=== PATIENT | female | born 1955 | race Caucasian/White ===

== ENCOUNTER 2017-11-16 12:15 | Outpatient (CLI) | payer MEDICARE, BC ==
[2017-11-16 13:13] LABS: BASOPHILS % (AUTO) 0.7 % (0-1); EOSINOPHILS # (AUTO) 0.1 X10'3 (0-0.9); EOSINOPHILS % (AUTO) 2.1 % (0-6); HEMATOCRIT 38.4 % (35.0-45.0); HEMOGLOBIN 12.5 g/dl (12.0-16.0); LYMPHOCYTES # (AUTO) 1.3 X10'3 (1.1-4.8); LYMPHOCYTES % (AUTO) 26.9 % (21-51); MEAN CORPUSCULAR HEMOGLOBIN 28.5 PG (27.0-31.0); MEAN CORPUSCULAR HGB CONC 32.6 % (33.0-36.5); MEAN CORPUSCULAR VOLUME 87.4 FL (78-98); MEAN PLATELET VOLUME 8.4 FL (7.4-10.4); MONOCYTES # (AUTO) 0.4 X10'3 (0-0.9); MONOCYTES % (AUTO) 8.2 % (2-12); NEUTROPHILS # (AUTO) 3.2 X10'3 (1.8-7.7); NEUTROPHILS % (AUTO) 62.1 % (42-75); PLATELET COUNT 240 X10'3 (140-440); RED CELL DISTRIBUTION WIDTH 16.2 % (11.5-14.5)
[2017-11-16 13:23] LABS: HEMOGLOBIN A1C 5.6 % (4.5-6.2)
[2017-11-16 13:53] LABS: ALANINE AMINOTRANSFERASE 31 U/L (12-78); ALBUMIN 3.7 G/DL (3.4-5.0); ALBUMIN/GLOBULIN RATIO 0.9 (1.1-1.5); ALKALINE PHOSPHATASE 94 IU/L (46-116); ANION GAP 10 (8-16); ASPARTATE AMINO TRANSFERASE 19 U/L (10-37); BILIRUBIN,TOTAL 0.3 MG/DL (0.1-1.0); BLOOD UREA NITROGEN 25 MG/DL (7-18); BUN/CREATININE RATIO 33.8 (6.6-38.0); CALCIUM 8.7 MG/DL (8.5-10.1); CHLORIDE 102 MMOL/L (99-107); CHOL/HDL RATIO 2.5 (0.00-4.99); CHOLESTEROL 193 MG/DL (0-200); CREATININE 0.74 MG/DL (0.40-0.90); FERRITIN 16 NG/ML (8-252); GLUCOSE 102 MG/DL (70-104); HDL CHOLESTEROL 77 MG/DL (35-60); LDL CHOLESTEROL 102 MG/DL (50-100); POTASSIUM 4.1 MMOL/L (3.5-5.1); SODIUM 139 MMOL/L (135-145); TRIGLYCERIDES 61 MG/DL (20-135); eGFR 80 ML/MIN
[2017-11-16 13:54] LABS: IRON 57 UG/DL (49-151)
[2017-11-18 08:11] LABS: FSH, SERUM 41.3 mIU/mL (.); GAMMA GLUTAMLY TRANSPEPTIDASE 30 IU/L (0-60); PROGESTERONE <0.1 ng/mL (.); THIIODOTHRONINE, FREE, SERUM 2.5 pg/mL (2.0-4.4)
[2017-11-19 08:50] LABS: VITAMIN D, 25-HYDROXY 35.4 ng/mL (30.0-100.0)
[2017-11-20 09:53] LABS: INSULIN 18.4 uIU/mL (2.6-24.9)
[2017-11-20 13:16] LABS: ESTRONE, SERUM 69 pg/mL (.); TESTOSTERONE, FREE, DIRECT 1.8 pg/mL (0.0-4.2)
== END 2017-11-16 23:59 | disposition home or self-care (01) ==
LOC: LAB 12:15
PROVIDERS: ATTEND Internal Medicine
DX: E78.5 Hyperlipidemia, unspecified (principal); E07.9 Disorder of thyroid, unspecified; E34.9 Endocrine disorder, unspecified; R53.83 Other fatigue; N95.1 Menopausal and female climacteric states; E16.1 Other hypoglycemia; M06.4 Inflammatory polyarthropathy; Z87.891 Personal history of nicotine dependence
CPT/HCPCS: 36415; 80053; 80061; 82306; 82670; 82679; 82728; 82977; 83001; 83036; 83525; 83540; 84144; 84402; 84403; 84439; 84481; 85025

== ENCOUNTER → 2017-11-16 | Outpatient (CLI) | payer MEDICARE, BC ==
[2017-11-16 13:12] LABS: BASOPHILS % (AUTO) 0.7 % (0-1); EOSINOPHILS # (AUTO) 0.1 X10'3 (0-0.9); EOSINOPHILS % (AUTO) 1.8 % (0-6); HEMATOCRIT 38.2 % (35.0-45.0); HEMOGLOBIN 12.7 g/dl (12.0-16.0); LYMPHOCYTES # (AUTO) 1.3 X10'3 (1.1-4.8); LYMPHOCYTES % (AUTO) 27.6 % (21-51); MEAN CORPUSCULAR HEMOGLOBIN 29.1 PG (27.0-31.0); MEAN CORPUSCULAR HGB CONC 33.3 % (33.0-36.5); MEAN CORPUSCULAR VOLUME 87.2 FL (78-98); MEAN PLATELET VOLUME 8.2 FL (7.4-10.4); MONOCYTES # (AUTO) 0.4 X10'3 (0-0.9); MONOCYTES % (AUTO) 8.6 % (2-12); NEUTROPHILS # (AUTO) 2.9 X10'3 (1.8-7.7); NEUTROPHILS % (AUTO) 61.3 % (42-75); PLATELET COUNT 244 X10'3 (140-440); RED BLOOD COUNT 4.38 X10'6 (4.20-5.60); RED CELL DISTRIBUTION WIDTH 16.3 % (11.5-14.5); WHITE BLOOD COUNT 4.7 X10'3 (4.5-11.0)
[2017-11-16 13:36] LABS: ALANINE AMINOTRANSFERASE 31 U/L (12-78); ALBUMIN 3.7 G/DL (3.4-5.0); ALBUMIN/GLOBULIN RATIO 0.9 (1.1-1.5); ALKALINE PHOSPHATASE 95 IU/L (46-116); ANION GAP 9 (8-16); ASPARTATE AMINO TRANSFERASE 18 U/L (10-37); BILIRUBIN,DIRECT 0.1 MG/DL (0-0.3); BILIRUBIN,TOTAL 0.3 MG/DL (0.1-1.0); BLOOD UREA NITROGEN 25 MG/DL (7-18); BUN/CREATININE RATIO 32.9 (6.6-38.0); CALCIUM 8.7 MG/DL (8.5-10.1); CHLORIDE 102 MMOL/L (99-107); CREATININE 0.76 MG/DL (0.40-0.90); GLUCOSE 100 MG/DL (70-104); POTASSIUM 4.1 MMOL/L (3.5-5.1); SODIUM 139 MMOL/L (135-145); TOTAL CARBON DIOXIDE 27.9 MMOL/L (24-32); TOTAL PROTEIN 7.9 G/DL (6.4-8.2); eGFR 78 ML/MIN
== END | disposition home or self-care (01) ==
LOC: LAB 12:04
PROVIDERS: ATTEND Internal Medicine Rheumatology
DX: M05.79 Rheumatoid arthritis with rheumatoid factor of multiple sites without organ or systems involvement (principal); Z87.891 Personal history of nicotine dependence
CPT/HCPCS: 36415; 80048; 80076; 85025

== ENCOUNTER 2018-12-02 15:30 | Emergency (ER) | payer MEDICARE, BC ==
[~2018-12-02] VITALS: Ht 162.6 cm; Wt 138.6 kg
[2018-12-02] MEDS ORDERED: HYDROcodone/acetaminophen 10/325mg tab PO ONE (16:50)
[2018-12-02] MEDS ORDERED: ketorolac trometh inj. 60 MG/2 ML VIAL IM ONE (17:10)
[2018-12-02 18:09] VITALS: BP 120/74
== END 2018-12-02 18:11 | disposition home or self-care (01) ==
LOC: ER 15:30
DX: M25.551 Pain in right hip (principal); W18.39XA Other fall on same level, initial encounter; Y93.89 Activity, other specified; Y92.89 Other specified places as the place of occurrence of the external cause; Y99.8 Other external cause status
CPT/HCPCS: 73502; 96372; 99283; J1885

== ENCOUNTER → 2018-12-30 | Outpatient (CLI) | payer MEDICARE, BC ==
[2018-12-30 12:49] LABS: HEMOGLOBIN A1C 5.4 % (4.5-6.2)
[2018-12-30 12:56] LABS: ALANINE AMINOTRANSFERASE 23 U/L (12-78); ALBUMIN 3.9 G/DL (3.4-5.0); ALBUMIN/GLOBULIN RATIO 0.9 (1.1-1.5); ALKALINE PHOSPHATASE 88 IU/L (46-116); ANION GAP 11 (8-16); ASPARTATE AMINO TRANSFERASE 19 U/L (10-37); BILIRUBIN,TOTAL 0.3 MG/DL (0.1-1.0); BLOOD UREA NITROGEN 17 MG/DL (7-18); C-REACTIVE PROTEIN 0.16 MG/DL (0.0-0.5); CALCIUM 9.2 MG/DL (8.5-10.1); CHLORIDE 102 MMOL/L (99-107); CREATININE 0.81 MG/DL (0.40-0.90); GLUCOSE 112 MG/DL (70-104); SODIUM 139 MMOL/L (135-145); TOTAL CARBON DIOXIDE 26.5 MMOL/L (24-32); TOTAL PROTEIN 8.3 G/DL (6.4-8.2); eGFR 72 ML/MIN
[2018-12-30 13:45] LABS: RHEUM FACTOR QUAL REFLEX TITER POSITIVE (Neg)
[2018-12-30 13:53] LABS: RF TITER 160 IU/ml (Neg)
== END | disposition home or self-care (01) ==
LOC: LAB 11:50
PROVIDERS: ATTEND Physical Medicine & Rehabilitation
DX: E11.9 Type 2 diabetes mellitus without complications (principal); M06.9 Rheumatoid arthritis, unspecified; M17.11 Unilateral primary osteoarthritis, right knee; G89.4 Chronic pain syndrome; Z79.891 Long term (current) use of opiate analgesic
CPT/HCPCS: 36415; 80053; 83036; 86038; 86140; 86430; 86431

== ENCOUNTER 2019-02-19 12:10 | Outpatient (CLI) | payer MEDICARE, BC ==
[2019-02-19 13:16] LABS: BASOPHILS % (AUTO) 0.7 % (0-1); EOSINOPHILS # (AUTO) 0.2 X10'3 (0-0.9); HEMATOCRIT 33.3 % (35.0-45.0); HEMOGLOBIN 10.8 g/dl (12.0-16.0); LYMPHOCYTES # (AUTO) 1.1 X10'3 (1.1-4.8); LYMPHOCYTES % (AUTO) 21.1 % (21-51); MEAN CORPUSCULAR HEMOGLOBIN 26.6 PG (27.0-31.0); MEAN CORPUSCULAR HGB CONC 32.4 g/dL (33.0-36.5); MEAN CORPUSCULAR VOLUME 82.2 FL (78-98); MEAN PLATELET VOLUME 8.1 FL (7.4-10.4); MONOCYTES # (AUTO) 0.4 X10'3 (0-0.9); MONOCYTES % (AUTO) 8.4 % (2-12); NEUTROPHILS # (AUTO) 3.6 X10'3 (1.8-7.7); NEUTROPHILS % (AUTO) 66.8 % (42-75); PLATELET COUNT 273 X10'3 (140-440); RED BLOOD COUNT 4.05 X10'6 (4.20-5.60); RED CELL DISTRIBUTION WIDTH 18.4 % (11.5-14.5); WHITE BLOOD COUNT 5.3 X10'3 (4.5-11.0)
[2019-02-19 13:48] LABS: ALANINE AMINOTRANSFERASE 16 U/L (12-78); ALBUMIN 3.7 G/DL (3.4-5.0); ALBUMIN/GLOBULIN RATIO 0.9 (1.1-1.5); ALKALINE PHOSPHATASE 75 IU/L (46-116); ANION GAP 5 (8-16); ASPARTATE AMINO TRANSFERASE 17 U/L (10-37); BILIRUBIN,TOTAL 0.2 MG/DL (0.1-1.0); BLOOD UREA NITROGEN 21 MG/DL (7-18); BUN/CREATININE RATIO 28.8 (6.6-38.0); CALCIUM 8.7 MG/DL (8.5-10.1); CHLORIDE 106 MMOL/L (99-107); CHOL/HDL RATIO 2.4 (0.00-4.99); CHOLESTEROL 187 MG/DL (0-200); CREATININE 0.73 MG/DL (0.40-0.90); GLUCOSE 90 MG/DL (70-104); HDL CHOLESTEROL 77 MG/DL (35-60); LDL CHOLESTEROL 93 MG/DL (50-100); POTASSIUM 4.2 MMOL/L (3.5-5.1); SODIUM 141 MMOL/L (135-145); TRIGLYCERIDES 69 MG/DL (20-135); eGFR 81 ML/MIN
[2019-02-19 14:09] LABS: FERRITIN 10 NG/ML (8-252)
[2019-02-19 14:30] LABS: % IRON SATURATION 10 % (11-46); IRON 42 UG/DL (49-151); TOTAL IRON BINDING CAPACITY 414 UG/DL (259-388)
[2019-02-19 14:32] LABS: RHEUM FACTOR QUAL REFLEX TITER POSITIVE (Neg)
[2019-02-19 15:44] LABS: RF TITER 160 IU/ml (Neg)
[2019-02-21 08:09] LABS: VITAMIN D, 25-HYDROXY 33.6 ng/mL (30.0-100.0)
[2019-02-21 08:10] LABS: THIIODOTHRONINE, FREE, SERUM 2.2 pg/mL (2.0-4.4)
[2019-02-21 12:46] LABS: ESTRADIOL 42.6 pg/mL (.); PROGESTERONE 0.4 ng/mL (.)
[2019-02-21 13:10] LABS: ANTINUCLEAR ANTIBODIES Negative (Negative); INSULIN 13.5 uIU/mL (2.6-24.9)
[2019-02-24 11:09] LABS: TESTOSTERONE, FREE, DIRECT 2.8 pg/mL (0.0-4.2)
[2019-02-24 15:05] LABS: ESTRONE, SERUM 102 pg/mL (.)
== END 2019-02-19 23:59 | disposition home or self-care (01) ==
LOC: LAB 12:10
PROVIDERS: ATTEND Internal Medicine
DX: E34.9 Endocrine disorder, unspecified (principal); E07.9 Disorder of thyroid, unspecified; N95.1 Menopausal and female climacteric states; E16.1 Other hypoglycemia; E78.5 Hyperlipidemia, unspecified; R53.83 Other fatigue; E11.9 Type 2 diabetes mellitus without complications; Z79.891 Long term (current) use of opiate analgesic
CPT/HCPCS: 36415; 80053; 80061; 82306; 82670; 82679; 82728; 83525; 83540; 83550; 84144; 84402; 84403; 84439; 84481; 85025; 85651; 86038; 86430; 86431

== ENCOUNTER 2021-08-25 08:23 | Outpatient (CLI) | payer MEDICARE, BC ==
[2021-08-25 09:15] LABS: BASOPHILS # (AUTO) 0.1 X10'3 (0-0.2); BASOPHILS % (AUTO) 0.8 % (0-1); EOSINOPHILS # (AUTO) 0.2 X10'3 (0-0.9); EOSINOPHILS % (AUTO) 3.6 % (0-6); HEMATOCRIT 34.5 % (35.0-45.0); HEMOGLOBIN 11.3 g/dl (12.0-16.0); LYMPHOCYTES # (AUTO) 1.6 X10'3 (1.1-4.8); LYMPHOCYTES % (AUTO) 25.4 % (21-51); MEAN CORPUSCULAR HEMOGLOBIN 27.8 PG (27.0-31.0); MEAN CORPUSCULAR HGB CONC 32.9 g/dL (33.0-36.5); MEAN CORPUSCULAR VOLUME 84.8 FL (78-98); MONOCYTES # (AUTO) 0.5 X10'3 (0-0.9); MONOCYTES % (AUTO) 8.3 % (2-12); NEUTROPHILS # (AUTO) 3.9 X10'3 (1.8-7.7); NEUTROPHILS % (AUTO) 61.9 % (42-75); PLATELET COUNT 278 X10'3 (140-440); RED BLOOD COUNT 4.07 X10'6 (4.20-5.60); RED CELL DISTRIBUTION WIDTH 17.3 % (11.5-14.5); WHITE BLOOD COUNT 6.3 X10'3 (4.5-11.0)
[2021-08-25 09:16] LABS: HEMOGLOBIN A1C 5.4 % (4.5-6.2)
[2021-08-25 10:48] LABS: IRON 41 UG/DL (49-151)
[2021-08-25 11:56] LABS: ALANINE AMINOTRANSFERASE 25 U/L (12-78); ALBUMIN 3.3 G/DL (3.4-5.0); ALBUMIN/GLOBULIN RATIO 0.7 (1.1-1.5); ALKALINE PHOSPHATASE 58 IU/L (46-116); ANION GAP 14 (8-16); ASPARTATE AMINO TRANSFERASE 25 U/L (10-37); BILIRUBIN,TOTAL 0.2 MG/DL (0.1-1.0); BLOOD UREA NITROGEN 19 MG/DL (7-18); BUN/CREATININE RATIO 26.8 (6.6-38.0); CALCIUM 8.9 MG/DL (8.5-10.1); CHLORIDE 104 MMOL/L (99-107); CHOL/HDL RATIO 3.2 (0.00-4.99); CHOLESTEROL 214 MG/DL (0-200); CREATININE 0.71 MG/DL (0.40-0.90); FERRITIN 13 NG/ML (8-252); GLUCOSE 101 MG/DL (70-104); HDL CHOLESTEROL 67 MG/DL (35-60); LDL CHOLESTEROL 115 MG/DL (50-100); POTASSIUM 3.9 MMOL/L (3.5-5.1); SODIUM 142 MMOL/L (135-145); TOTAL PROTEIN 7.8 G/DL (6.4-8.2); TRIGLYCERIDES 70 MG/DL (20-135); eGFR 83 ML/MIN
[2021-08-26 13:20] LABS: FSH, SERUM 29.8 mIU/mL (.); GAMMA GLUTAMLY TRANSPEPTIDASE 13 IU/L (0-60); INSULIN 11.8 uIU/mL (2.6-24.9); PROGESTERONE 0.6 ng/mL (.); THIIODOTHRONINE, FREE, SERUM 2.2 pg/mL (2.0-4.4)
[2021-08-29 10:00] LABS: TESTOSTERONE, FREE, DIRECT 1.2 pg/mL (0.0-4.2)
[2021-08-30 11:49] LABS: ESTRONE, SERUM 112 pg/mL (0-125)
== END 2021-08-25 23:59 | disposition home or self-care (01) ==
LOC: LAB 08:23
PROVIDERS: ATTEND Internal Medicine
DX: N95.1 Menopausal and female climacteric states (principal); E07.9 Disorder of thyroid, unspecified; E34.9 Endocrine disorder, unspecified; R53.83 Other fatigue
CPT/HCPCS: 36415; 80053; 80061; 82306; 82627; 82670; 82679; 82728; 82977; 83001; 83036; 83090; 83525; 83540; 84144; 84402; 84403; 84439; 84481; 85025

== ENCOUNTER 2022-04-25 12:19 | Outpatient (CLI) | payer MEDICARE, BC ==
[2022-04-25 13:13] LABS: BASOPHILS # (AUTO) 0.1 X10'3 (0-0.2); BASOPHILS % (AUTO) 0.8 % (0-1); EOSINOPHILS # (AUTO) 0.3 X10'3 (0-0.9); EOSINOPHILS % (AUTO) 3.8 % (0-6); HEMATOCRIT 34.6 % (35.0-45.0); LYMPHOCYTES # (AUTO) 1.6 X10'3 (1.1-4.8); LYMPHOCYTES % (AUTO) 23.5 % (21-51); MEAN CORPUSCULAR HEMOGLOBIN 24.3 PG (27.0-31.0); MEAN CORPUSCULAR HGB CONC 31.8 g/dL (33.0-36.5); MEAN CORPUSCULAR VOLUME 76.4 FL (78-98); MEAN PLATELET VOLUME 7.6 FL (7.4-10.4); MONOCYTES # (AUTO) 0.6 X10'3 (0-0.9); MONOCYTES % (AUTO) 9.1 % (2-12); NEUTROPHILS # (AUTO) 4.2 X10'3 (1.8-7.7); NEUTROPHILS % (AUTO) 62.8 % (42-75); PLATELET COUNT 298 X10'3 (140-440); RED BLOOD COUNT 4.52 X10'6 (4.20-5.60); RED CELL DISTRIBUTION WIDTH 19.9 % (11.5-14.5); WHITE BLOOD COUNT 6.7 X10'3 (4.5-11.0)
[2022-04-25 13:25] LABS: IRON 29 UG/DL (49-151)
[2022-04-25 13:34] LABS: ANISOCYTOSIS 2+; MICROCYTOSIS 1+; PLATELET ESTIMATE NORMAL
[2022-04-25 13:35] LABS: ELLIPTOCYTES FEW; TEAR DROP CELLS FEW
[2022-04-25 13:58] LABS: ALANINE AMINOTRANSFERASE 14 U/L (12-78); ALBUMIN 3.5 G/DL (3.4-5.0); ALBUMIN/GLOBULIN RATIO 0.8 (1.1-1.5); ALKALINE PHOSPHATASE 63 IU/L (46-116); ANION GAP 9 (8-16); ASPARTATE AMINO TRANSFERASE 18 U/L (10-37); BILIRUBIN,TOTAL 0.3 MG/DL (0.1-1.0); BLOOD UREA NITROGEN 26 MG/DL (7-18); BUN/CREATININE RATIO 37.1 (10.0-20.0); CALCIUM 9.3 MG/DL (8.5-10.1); CHLORIDE 102 MMOL/L (99-107); CHOLESTEROL 191 MG/DL (0-200); FERRITIN 7 NG/ML (8-252); GLUCOSE 96 MG/DL (70-104); HDL CHOLESTEROL 96 MG/DL (35-60); LDL CHOLESTEROL 77 MG/DL (50-100); POTASSIUM 4.3 MMOL/L (3.5-5.1); SODIUM 139 MMOL/L (135-145); TOTAL CARBON DIOXIDE 28.2 MMOL/L (24-32); TOTAL PROTEIN 8.1 G/DL (6.4-8.2); TRIGLYCERIDES 45 MG/DL (20-135); eGFR 84 ML/MIN
[2022-04-25 14:10] LABS: HEMOGLOBIN A1C 5.7 % (4.5-6.2)
[2022-04-26 10:05] LABS: ESTRADIOL 20.4 pg/mL (.); GAMMA GLUTAMLY TRANSPEPTIDASE 10 IU/L (0-60); PROGESTERONE 0.8 ng/mL (.); THIIODOTHRONINE, FREE, SERUM 2.4 pg/mL (2.0-4.4)
[2022-04-26 16:42] LABS: INSULIN 12.3 uIU/mL (2.6-24.9)
[2022-04-28 17:24] LABS: ESTRONE, SERUM 112 pg/mL (0-125)
== END 2022-04-25 23:59 | disposition home or self-care (01) ==
LOC: LAB 12:19
PROVIDERS: ATTEND Internal Medicine
DX: N95.1 Menopausal and female climacteric states (principal); E34.9 Endocrine disorder, unspecified; E07.9 Disorder of thyroid, unspecified; R53.83 Other fatigue
CPT/HCPCS: 80053; 80061; 82306; 82627; 82670; 82679; 82728; 82977; 83001; 83036; 83090; 83525; 83540; 84144; 84402; 84403; 84439; 84481; 85008; 85025

== ENCOUNTER → 2022-09-21 | Day surgery (SDC) | payer MEDICARE, BC ==
[2022-09-19 17:37] LABS: BASOPHILS # (AUTO) 0.1 X10'3 (0-0.2); EOSINOPHILS # (AUTO) 0.1 X10'3 (0-0.9); MONOCYTES # (AUTO) 0.8 X10'3 (0-0.9); RED BLOOD COUNT 3.49 X10'6 (4.20-5.60)
[2022-09-19 17:37] LABS: BILIRUBIN,URINE SMALL (Neg); CLARITY,URINE CLOUDY (Clear); COLOR,URINE YELLOW (Yellow); GLUCOSE, URINE NEGATIVE (Neg); KETONES,URINE TRACE mg/dl (Neg); LEUKOCYTE ESTERASE ,URINE NEGATIVE (Neg); NITRITES, URINE NEGATIVE (Neg); OCCULT BLOOD,URINE LARGE (Neg); PH,URINE 5.5 (4.8-8.0); PROTEIN,URINE 100 mg/dl (Neg); UROBILINOGEN,URINE 0.2 E.U/dL (0.2-1.0)
[2022-09-19 17:38] LABS: BASOPHILS % (AUTO) 0.7 % (0-1); LYMPHOCYTES # (AUTO) 1.8 X10'3 (1.1-4.8); LYMPHOCYTES % (AUTO) 17.5 % (21-51); MEAN CORPUSCULAR HGB CONC 30.2 g/dL (33.0-36.5); MEAN CORPUSCULAR VOLUME 75.9 FL (78-98); MEAN PLATELET VOLUME 7.8 FL (7.4-10.4); MONOCYTES % (AUTO) 7.8 % (2-12); NEUTROPHILS # (AUTO) 7.4 X10'3 (1.8-7.7); PRE OP HEMATOCRIT 26.5 % (35.0-45.0); PRE OP PLATELET COUNT 526 X10'3 (140-440); PRE OP WHITE BLOOD COUNT 10.2 10'3 (4.8-10.8)
[2022-09-19 17:45] LABS: UA COLLECTION TYPE CLN CATCH MIDSTREAM
[2022-09-19 17:50] LABS: PRE OP INR 1.1 INR; PRE OP PROTIME 11.4 SECONDS (9.0-12.0)
[2022-09-19 17:50] LABS: BACTERIA,URINE 1+ /HPF (Neg); MUCUS STRANDS FEW /LPF (Neg); RBC,URINE TNTC /HPF (0-2); SQUAMOUS EPITHELIAL CELL,UR FEW /LPF (FEW); WBC CLUMPS,URINE FEW /HPF (NEGATIVE)
[2022-09-19 17:52] LABS: ALBUMIN/GLOBULIN RATIO 0.7 (1.1-1.5); ALKALINE PHOSPHATASE 58 IU/L (46-116); BLOOD UREA NITROGEN 10 MG/DL (7-18); BUN/CREATININE RATIO 11.9 (10.0-20.0); CALCIUM 8.6 MG/DL (8.5-10.1); CHLORIDE 104 MMOL/L (99-107); CREATININE 0.84 MG/DL (0.40-0.90); PRE OP ALT 16 U/L (30-65); PRE OP ANION GAP 15 (8-16); PRE OP AST 13 U/L (10-37); PRE OP BILIRUB, TOTAL 0.2 MG/DL (0.0-1.0); PRE OP GLUCOSE 110 MG/DL (70-104); PRE OP POTASSIUM 3.7 MMOL/L (3.4-5.1); PRE OP SODIUM 141 MMOL/L (135-145); TOTAL CARBON DIOXIDE 22.3 MMOL/L (24-32); TOTAL PROTEIN 7.3 G/DL (6.4-8.2); eGFR 68 ML/MIN
[2022-09-19 18:22] LABS: ANISOCYTOSIS 2+; HYPOCHROMASIA 1+; MICROCYTOSIS 1+; PLATELET ESTIMATE INCREASED
[2022-09-19 18:23] LABS: ELLIPTOCYTES FEW; TEAR DROP CELLS FEW
[2022-09-21] VITALS (15 sets, daily range): BP systolic 122–168; BP diastolic 57–88; PULSE 90–114; RESP 9–31; TEMP 97.9; O2SAT 89–100
[~2022-09-21] VITALS: Ht 162.6 cm; Wt 123.6 kg
[~2022-09-21] MED LIST: CHOL50004 PO; CORAL COMPLEX; DULO60CA65 PO; FOLI1TAB27 PO; GABA-530 PO; GLUC750C PO; HYDR10TA PO; HYDR200T73 PO; HYDR5TAB PO; IRON OTC; LIDOcaine 2% (20mg/ml) 5ml vial ONE; LISI20TA28 PO; MEDR10TA10 PO; MEGE40TA5 PO; MELO-100 PO; OMEP20CA16 PO; PIOG45TA5 PO; PRAS25CA PO; S AD PO; S-AD200T8 PO; THYROID PO; TRAM50TA2 PO; TRYP500C PO; ZYFLAMEND PO; [UNRECOGNIZED DRUG - CODE] PO; [UNRECOGNIZED DRUG - OTHER]; clindamycin-Cleocin 900mg/D5W 50 ML IV ONE; dexamethasone sod phosphate 4mg/ml inj. ONE; famotidine 20mg tablet PO ONE; fentaNYL/PF 50MCG/1 ML 2ML syringe ONE; glycopyrrolate 0.2mg/ml inj ONE; meperidine/PF 25mg/ml syringe IV PRN; midazolam 1 mg/ML 2ml injection ONE; morphine 2 MG/ML inj. syringe IV PRN; morphine 4 MG/ML inj SYRINge IV PRN; neostigmine methylsulfate 1 MG/ML 10ml vial ONE; ondansetron/PF 4mg/2ml inj IV PRN; ondansetron/PF 4mg/2ml inj ONE; proCHLORperazine 10 MG/2 ml inj IV PRN; propofol inj 20 ML IV ONE; ringers solution, lacted 1,000 ML IV SCH; rocuronium 10mg/ml inj IV ONE; sevoflurane 250ml liquid IH ONE; sugammadex 200mg/2ml injection IV ONE
[2022-09-21 09:11] LABS: ISTAT CREATININE 0.7 mg/dL (0.6-1.1); ISTAT HGB 8.8 g/dl (12.0-16.0); ISTAT IONIZED CALCIUM 1.23 mmol/L (1.03-1.32); ISTAT K 4.1 mmol/L (3.5-5.1)
--- NOTE | 2022-09-21 11:28 | NUR ---
Received from OR via jermaine , accompanied by Anesthesiologist Skyler and report given by Anesthesiolgist. Pt sleepy, responding appropriately. Dr. Sultana at bedside in recovery to assess perineal area for bleeding, pad scant pink blood noted. Will continue to monitor. Pt states pain is 6/10. Morphine 2mg IV, administered. SR. 10L SM oxygen sat 98%. LR running in left hand PIV. Will continue plan of care. Addendum: 09/21/22 at 1132 by Lupe Barrera RN Amended: Links added.
--- NOTE | 2022-09-21 12:30 | NUR ---
Report called to receiving nurse BERGER. Transferred via GURNEY WITH Belongings . Special Issues communicated to receiving nurse BERGER. PATIENT DENIES PAIN VSS WITH EXCEPTION OF O2 SATURATIONS. PATIENT ON RA WITH SATURATIONS OF 87% ON ROOM AIR. COUGHING AND DEEP BREATHING BRINGS SATS TO 93% HOWEVER PATIENT SATS DROPS UNLESS REMINDED TO DB&C. TAKEN TO PAS UNIT AND BEING MONITORED FOR DC BY SHARMAINE PRITCHARD. Addendum: 09/21/22 at 1234 by Eulalio Leon - SHARMAINE SCHMID Amended: Links added.
== END | disposition home or self-care (01) ==
LOC: PAS 08:00
PROVIDERS: ATTEND Obstetrics & Gynecology Obstetrics
DX: C54.1 Malignant neoplasm of endometrium (principal); N84.0 Polyp of corpus uteri; N85.8 Other specified noninflammatory disorders of uterus; E66.01 Morbid (severe) obesity due to excess calories; Z68.42 Body mass index [BMI] 45.0-49.9, adult; D64.9 Anemia, unspecified; I10 Essential (primary) hypertension; F41.9 Anxiety disorder, unspecified; F32.A Depression, unspecified; K21.9 Gastro-esophageal reflux disease without esophagitis; M06.9 Rheumatoid arthritis, unspecified; Z85.42 Personal history of malignant neoplasm of other parts of uterus; Z87.891 Personal history of nicotine dependence; Z88.0 Allergy status to penicillin; Z79.899 Other long term (current) drug therapy; Z79.01 Long term (current) use of anticoagulants
CPT/HCPCS: 36415; 58558; 58999; 71046; 80047; 80053; 81001; 85025; 85610; 85730; 86885; 86900; 86901; 86920; 86945; 87077; 87088; 87186; 93005; J1100; J2250; J2270; J2405; J2704; J2710; J3010; J3490; J7030; J7120; Z7506; Z7512; 85008; A4355; A4615; A4618; A6258; A7000

== ENCOUNTER 2023-03-09 10:47 | Outpatient (CLI) | payer MEDICARE, BC ==
[~2023-03-09 10:47] MED LIST changes: -LIDOcaine 2% (20mg/ml) 5ml vial ONE; -clindamycin-Cleocin 900mg/D5W 50 ML IV ONE; -dexamethasone sod phosphate 4mg/ml inj. ONE; -famotidine 20mg tablet PO ONE; -fentaNYL/PF 50MCG/1 ML 2ML syringe ONE; -glycopyrrolate 0.2mg/ml inj ONE; -meperidine/PF 25mg/ml syringe IV PRN; -midazolam 1 mg/ML 2ml injection ONE; -morphine 2 MG/ML inj. syringe IV PRN; -morphine 4 MG/ML inj SYRINge IV PRN; -neostigmine methylsulfate 1 MG/ML 10ml vial ONE; -ondansetron/PF 4mg/2ml inj IV PRN; -ondansetron/PF 4mg/2ml inj ONE; -proCHLORperazine 10 MG/2 ml inj IV PRN; -propofol inj 20 ML IV ONE; -ringers solution, lacted 1,000 ML IV SCH; -rocuronium 10mg/ml inj IV ONE; -sevoflurane 250ml liquid IH ONE; -sugammadex 200mg/2ml injection IV ONE
[2023-03-09 12:27] LABS: BASOPHILS # (AUTO) 0.1 X10'3 (0-0.2); BASOPHILS % (AUTO) 0.6 % (0-1); EOSINOPHILS # (AUTO) 0.3 X10'3 (0-0.9); EOSINOPHILS % (AUTO) 3.2 % (0-6); HEMATOCRIT 36.1 % (35.0-45.0); HEMOGLOBIN 11.3 g/dl (12.0-16.0); LYMPHOCYTES # (AUTO) 1.9 X10'3 (1.1-4.8); LYMPHOCYTES % (AUTO) 20.2 % (21-51); MEAN CORPUSCULAR HEMOGLOBIN 24.2 PG (27.0-31.0); MEAN CORPUSCULAR HGB CONC 31.4 g/dL (33.0-36.5); MEAN CORPUSCULAR VOLUME 77.2 FL (78-98); MEAN PLATELET VOLUME 7.9 FL (7.4-10.4); MONOCYTES # (AUTO) 0.6 X10'3 (0-0.9); MONOCYTES % (AUTO) 6.2 % (2-12); NEUTROPHILS # (AUTO) 6.7 X10'3 (1.8-7.7); NEUTROPHILS % (AUTO) 69.8 % (42-75); PLATELET COUNT 384 X10'3 (140-440); RED BLOOD COUNT 4.67 X10'6 (4.20-5.60); RED CELL DISTRIBUTION WIDTH 21.6 % (11.5-14.5); WHITE BLOOD COUNT 9.5 X10'3 (4.5-11.0)
[2023-03-09 12:33] LABS: IRON 43 UG/DL (49-151)
[2023-03-09 12:39] LABS: ALANINE AMINOTRANSFERASE 13 U/L (12-78); ALBUMIN 3.4 G/DL (3.4-5.0); ALBUMIN/GLOBULIN RATIO 0.7 (1.1-1.5); ALKALINE PHOSPHATASE 65 IU/L (46-116); ANION GAP 11 (8-16); ASPARTATE AMINO TRANSFERASE 10 U/L (10-37); BILIRUBIN,TOTAL 0.4 MG/DL (0.1-1.0); BLOOD UREA NITROGEN 23 MG/DL (7-18); BUN/CREATININE RATIO 27.7 (10.0-20.0); CALCIUM 8.9 MG/DL (8.5-10.1); CHLORIDE 102 MMOL/L (99-107); CHOL/HDL RATIO 2.6 (0.00-4.99); CHOLESTEROL 154 MG/DL (0-200); CREATININE 0.83 MG/DL (0.40-0.90); FREE T4 (FREE THYROXINE) 0.84 NG/DL (0.73-1.40); GLUCOSE 98 MG/DL (70-104); HDL CHOLESTEROL 59 MG/DL (35-60); LDL CHOLESTEROL 76 MG/DL (50-100); POTASSIUM 3.8 MMOL/L (3.5-5.1); SODIUM 136 MMOL/L (135-145); TOTAL CARBON DIOXIDE 23.4 MMOL/L (24-32); TOTAL PROTEIN 8.2 G/DL (6.4-8.2); TRIGLYCERIDES 58 MG/DL (20-135); eGFR 69 ML/MIN
[2023-03-09 13:11] LABS: HEMOGLOBIN A1C 5.2 % (4.5-6.2)
[2023-03-09 15:22] LABS: PLATELET ESTIMATE NORMAL
[2023-03-09 15:23] LABS: ANISOCYTOSIS 3+; HYPOCHROMASIA 1+; MICROCYTOSIS 1+; POLYCHROMASIA 1+
[2023-03-09 15:24] LABS: BURR CELLS 1+; ELLIPTOCYTES 1+
[2023-03-09 15:25] LABS: TEAR DROP CELLS FEW
[2023-03-10 11:00] LABS: HOMOCYSTEINE, PLASMA 18.1 umol/L (0.0-17.2)
[2023-03-10 16:26] LABS: ESTRADIOL 19.7 pg/mL (0.0-54.7); FSH, SERUM 22.2 mIU/mL (25.8-134.8); PROGESTERONE <0.1 ng/mL (.); TESTOSTERONE, SERUM 8 ng/dL (3-67); THIIODOTHRONINE, FREE, SERUM 2.8 pg/mL (2.0-4.4)
[2023-03-12 11:32] LABS: INSULIN 23.8 uIU/mL (2.6-24.9)
== END 2023-03-09 23:59 | disposition home or self-care (01) ==
LOC: LAB 10:47
PROVIDERS: ATTEND Internal Medicine
DX: E34.9 Endocrine disorder, unspecified (principal); R53.83 Other fatigue; E07.9 Disorder of thyroid, unspecified; N95.1 Menopausal and female climacteric states; E16.1 Other hypoglycemia; E78.5 Hyperlipidemia, unspecified
CPT/HCPCS: 36415; 80053; 80061; 82306; 82627; 82670; 82679; 83001; 83036; 83090; 83525; 83540; 84144; 84402; 84403; 84439; 84481; 85008; 85025

== ENCOUNTER 2023-12-27 11:41 | Outpatient (CLI) | payer MEDICARE, BC ==
[~2023-12-27 11:41] MED LIST changes: -PRAS25CA PO; +PRAS25CA8 PO
[2023-12-27 12:59] LABS: BASOPHILS # (AUTO) 0.1 X10'3 (0-0.2); BASOPHILS % (AUTO) 1.1 % (0-1); EOSINOPHILS # (AUTO) 0.3 X10'3 (0-0.9); EOSINOPHILS % (AUTO) 5.1 % (0-6); HEMATOCRIT 26.7 % (35.0-45.0); HEMOGLOBIN 8.4 g/dl (12.0-16.0); LYMPHOCYTES # (AUTO) 1.2 X10'3 (1.1-4.8); LYMPHOCYTES % (AUTO) 19.9 % (21-51); MEAN CORPUSCULAR HEMOGLOBIN 21.6 PG (27.0-31.0); MEAN CORPUSCULAR HGB CONC 31.5 g/dL (33.0-36.5); MEAN CORPUSCULAR VOLUME 68.6 FL (78-98); MEAN PLATELET VOLUME 7.4 FL (7.4-10.4); MONOCYTES # (AUTO) 0.6 X10'3 (0-0.9); NEUTROPHILS % (AUTO) 64.9 % (42-75); PLATELET COUNT 297 X10'3 (140-440); RED BLOOD COUNT 3.89 X10'6 (4.20-5.60); RED CELL DISTRIBUTION WIDTH 20.6 % (11.5-14.5); WHITE BLOOD COUNT 6.2 X10'3 (4.5-11.0)
[2023-12-27 13:14] LABS: ALANINE AMINOTRANSFERASE 12 U/L (12-78); ALBUMIN 3.5 G/DL (3.4-5.0); ALBUMIN/GLOBULIN RATIO 0.8 (1.1-1.5); ALKALINE PHOSPHATASE 67 IU/L (46-116); ANION GAP 5 (8-16); ASPARTATE AMINO TRANSFERASE 11 U/L (10-37); BILIRUBIN,TOTAL 0.3 MG/DL (0.1-1.0); BLOOD UREA NITROGEN 18 MG/DL (7-18); BUN/CREATININE RATIO 20.9 (10.0-20.0); CALCIUM 8.8 MG/DL (8.5-10.1); CHLORIDE 102 MMOL/L (99-107); CREATININE 0.86 MG/DL (0.40-0.90); GLUCOSE 91 MG/DL (70-104); POTASSIUM 4.1 MMOL/L (3.5-5.1); SODIUM 137 MMOL/L (135-145); TOTAL CARBON DIOXIDE 29.8 MMOL/L (24-32); TOTAL PROTEIN 8.1 G/DL (6.4-8.2); eGFR 66 ML/MIN
[2023-12-27 13:26] LABS: CHOL/HDL RATIO 2.1 (0.00-4.99); CHOLESTEROL 162 MG/DL (0-200); FERRITIN 6 NG/ML (8-252); FREE T4 (FREE THYROXINE) 0.94 NG/DL (0.73-1.40); HDL CHOLESTEROL 77 MG/DL (35-60); LDL CHOLESTEROL 68 MG/DL (50-100); TRIGLYCERIDES 101 MG/DL (20-135)
[2023-12-27 13:30] LABS: HEMOGLOBIN A1C 5.7 % (4.5-6.2)
[2023-12-27 14:01] LABS: % IRON SATURATION 4 % (11-46); IRON 15 UG/DL (49-151); TOTAL IRON BINDING CAPACITY 379 UG/DL (259-388)
[2023-12-27 14:08] LABS: ANISOCYTOSIS 3+; ELLIPTOCYTES FEW; MICROCYTOSIS 2+; PLATELET ESTIMATE NORMAL
[2023-12-27 14:09] LABS: HYPOCHROMASIA 1+; POLYCHROMASIA FEW
[2023-12-29 08:38] LABS: DEHYDROEPIANDROSTERONE SULFATE 27.6 ug/dL (20.4-186.6); ESTRADIOL 6.4 pg/mL (0.0-54.7); FSH, SERUM 41.8 mIU/mL (25.8-134.8); GAMMA GLUTAMLY TRANSPEPTIDASE 9 IU/L (0-60); HOMOCYSTEINE, PLASMA 14.8 umol/L (0.0-17.2); PROGESTERONE <0.1 ng/mL (.); SEX HORM BINDING GLOB, SERUM 81.4 nmol/L (17.3-125.0); TESTOSTERONE, SERUM 4 ng/dL (3-67); THIIODOTHRONINE, FREE, SERUM 2.4 pg/mL (2.0-4.4); TRANSFERRIN 321 mg/dL (192-364)
[2023-12-29 11:36] LABS: INSULIN 10.4 uIU/mL (2.6-24.9)
[2023-12-31 13:13] LABS: ANTINUCLEAR ANTIBODIES Negative (Negative)
[2023-12-31 17:22] LABS: ESTRONE, SERUM 26 pg/mL (0-125)
[2024-01-02 05:27] LABS: TESTOSTERONE, FREE, DIRECT 0.3 pg/mL (0.0-4.2)
== END 2023-12-27 23:59 | disposition home or self-care (01) ==
LOC: LAB 11:41
PROVIDERS: ATTEND Internal Medicine
DX: E07.9 Disorder of thyroid, unspecified (principal); E34.9 Endocrine disorder, unspecified; R53.83 Other fatigue; E78.5 Hyperlipidemia, unspecified; Z86.2 Personal history of diseases of the blood and blood-forming organs and certain disorders involving the immune mechanism; Z79.899 Other long term (current) drug therapy
CPT/HCPCS: 36415; 80053; 80061; 80327; 82306; 82627; 82670; 82679; 82728; 82977; 83001; 83036; 83090; 83525; 83540; 83550; 84144; 84270; 84402; 84403; 84439; 84466; 84481; 85008; 85025; 85651; 86038; 86140; 86431

== ENCOUNTER 2024-05-19 10:44 | Outpatient (CLI) | payer MEDICARE, BC ==
[2024-05-19 12:25] LABS: BASOPHILS # (AUTO) 0.1 X10'3 (0-0.2); BASOPHILS % (AUTO) 1.4 % (0-1); EOSINOPHILS # (AUTO) 0.2 X10'3 (0-0.9); EOSINOPHILS % (AUTO) 5.5 % (0-6); HEMATOCRIT 28.1 % (35.0-45.0); HEMOGLOBIN 8.6 g/dl (12.0-16.0); LYMPHOCYTES # (AUTO) 1.4 X10'3 (1.1-4.8); MEAN CORPUSCULAR HEMOGLOBIN 20.9 PG (27.0-31.0); MEAN CORPUSCULAR HGB CONC 30.7 g/dL (33.0-36.5); MEAN CORPUSCULAR VOLUME 67.8 FL (78-98); MEAN PLATELET VOLUME 8.3 FL (7.4-10.4); MONOCYTES # (AUTO) 0.5 X10'3 (0-0.9); MONOCYTES % (AUTO) 11.3 % (2-12); NEUTROPHILS # (AUTO) 2.2 X10'3 (1.8-7.7); NEUTROPHILS % (AUTO) 50.8 % (42-75); PLATELET COUNT 293 X10'3 (140-440); RED BLOOD COUNT 4.14 X10'6 (4.20-5.60); RED CELL DISTRIBUTION WIDTH 22.8 % (11.5-14.5); WHITE BLOOD COUNT 4.4 X10'3 (4.5-11.0)
[2024-05-19 12:37] LABS: ALANINE AMINOTRANSFERASE 17 U/L (12-78); ALBUMIN 3.2 G/DL (3.4-5.0); ALBUMIN/GLOBULIN RATIO 0.8 (1.1-1.5); ALKALINE PHOSPHATASE 69 IU/L (46-116); ANION GAP 7 (8-16); ASPARTATE AMINO TRANSFERASE 14 U/L (10-37); BILIRUBIN,TOTAL 0.2 MG/DL (0.1-1.0); BLOOD UREA NITROGEN 21 MG/DL (7-18); BUN/CREATININE RATIO 29.6 (10.0-20.0); CALCIUM 9.1 MG/DL (8.5-10.1); CHLORIDE 106 MMOL/L (99-107); CREATININE 0.71 MG/DL (0.40-0.90); GLUCOSE 90 MG/DL (70-104); POTASSIUM 4.1 MMOL/L (3.5-5.1); SODIUM 143 MMOL/L (135-145); TOTAL PROTEIN 7.3 G/DL (6.4-8.2); eGFR 82 ML/MIN
[2024-05-19 12:54] LABS: % IRON SATURATION 15 % (11-46); IRON 55 UG/DL (49-151); TOTAL IRON BINDING CAPACITY 371 UG/DL (259-388)
[2024-05-19 13:08] LABS: CHOL/HDL RATIO 2.2 (0.00-4.99); CHOLESTEROL 166 MG/DL (0-200); FERRITIN 6 NG/ML (8-252); FREE T4 (FREE THYROXINE) 1.15 NG/DL (0.73-1.40); HDL CHOLESTEROL 77 MG/DL (35-60); LDL CHOLESTEROL 68 MG/DL (50-100); TRIGLYCERIDES 77 MG/DL (20-135)
[2024-05-19 13:12] LABS: ANISOCYTOSIS 3+; HYPOCHROMASIA 1+; MICROCYTOSIS 2+; PLATELET ESTIMATE NORMAL
[2024-05-19 13:13] LABS: ELLIPTOCYTES FEW
[2024-05-19 13:15] LABS: HEMOGLOBIN A1C 5.5 % (4.5-6.2)
[2024-05-21 08:13] LABS: ESTRADIOL 12.8 pg/mL (0.0-54.7); FSH, SERUM 39.1 mIU/mL (25.8-134.8); HOMOCYSTEINE, PLASMA 15.4 umol/L (0.0-17.2); PROGESTERONE <0.1 ng/mL (.); TESTOSTERONE, SERUM <3 ng/dL (3-67)
[2024-05-21 11:16] LABS: INSULIN 14.5 uIU/mL (2.6-24.9); SEX HORM BINDING GLOB, SERUM 95.1 nmol/L (17.3-125.0)
[2024-05-21 13:12] LABS: ANTINUCLEAR ANTIBODIES Negative (Negative)
[2024-05-21 15:10] LABS: TRANSFERRIN 320 mg/dL (192-364)
[2024-05-22 13:12] LABS: CCP IGG ANTIBODIES >250 units (0-19); ESTRONE, SERUM 83 pg/mL (0-125)
[2024-05-23 08:12] LABS: TESTOSTERONE, FREE, DIRECT 0.2 pg/mL (0.0-4.2)
== END 2024-05-19 23:59 | disposition home or self-care (01) ==
LOC: LAB 10:44
PROVIDERS: ATTEND Internal Medicine
DX: E07.9 Disorder of thyroid, unspecified (principal); R53.83 Other fatigue; E34.9 Endocrine disorder, unspecified
CPT/HCPCS: 36415; 80053; 80061; 80327; 82306; 82670; 82679; 82728; 83001; 83036; 83090; 83525; 83540; 83550; 84144; 84270; 84402; 84403; 84439; 84466; 84481; 85008; 85025; 85651; 86038; 86140; 86200; 86431

== ENCOUNTER 2024-09-04 11:46 | Outpatient (CLI) | payer MEDICARE, BC ==
[2024-09-04 12:26] LABS: MEAN PLATELET VOLUME 7.3 FL (7.4-10.4); RED CELL DISTRIBUTION WIDTH 22.9 % (11.5-14.5)
[2024-09-04 12:52] LABS: PLATELET ESTIMATE NORMAL
[2024-09-04 12:53] LABS: ELLIPTOCYTES FEW
[2024-09-04 13:10] LABS: CHOL/HDL RATIO 2.0 (0.00-4.99); CREATININE 0.95 MG/DL (0.40-0.90); LDL CHOLESTEROL 61 MG/DL (50-100); PRO BRAIN NATRIURETIC PEPTIDE 995 PG/ML (0-125); TOTAL CARBON DIOXIDE 28.3 MMOL/L (24-32); eGFR 59 ML/MIN
[2024-09-04 13:30] LABS: CRP-CARDIAC RISK 30.700 MG/L
[2024-09-06 08:11] LABS: HOMOCYSTEINE, PLASMA 11.2 umol/L (0.0-17.2)
[2024-09-06 11:18] LABS: DEHYDROEPIANDROSTERONE SULFATE 115.0 ug/dL (20.4-186.6); ESTRADIOL 13.7 pg/mL (0.0-54.7); PROGESTERONE <0.1 ng/mL (.); THIIODOTHRONINE, FREE, SERUM 2.2 pg/mL (2.0-4.4)
[2024-09-07 09:10] LABS: INSULIN 9.5 uIU/mL (2.6-24.9)
== END 2024-09-04 23:59 | disposition home or self-care (01) ==
LOC: RAD 11:46
PROVIDERS: ATTEND Internal Medicine
DX: E11.65 Type 2 diabetes mellitus with hyperglycemia (principal); E34.8 Other specified endocrine disorders; R53.83 Other fatigue; E07.9 Disorder of thyroid, unspecified; E55.9 Vitamin D deficiency, unspecified; R53.0 Neoplastic (malignant) related fatigue; N95.1 Menopausal and female climacteric states; E16.1 Other hypoglycemia; E72.11 Homocystinuria; E11.8 Type 2 diabetes mellitus with unspecified complications; E78.5 Hyperlipidemia, unspecified; E06.3 Autoimmune thyroiditis; N94.3 Premenstrual tension syndrome
CPT/HCPCS: 36415; 80053; 80061; 82306; 82627; 82670; 82679; 82728; 83036; 83090; 83525; 83540; 83880; 84144; 84439; 84481; 85008; 85025; 85651; 86140

== ENCOUNTER 2024-11-17 12:38 | Outpatient (CLI) | payer MEDICARE, BC ==
--- NOTE | 2024-11-17 19:09 | CARDIOLOGY REPORT ---
APPROVED REPORT EXAM: Comprehensive 2D, Doppler, and color-flow Echocardiogram. Patient Location: OUTPATIENT Blood Pressure: 186/85 mmHg Heart Rate: 70's bpm Rhythm: SINUS Indications AORTIS STENOSIS MURMUR Mechanical Test Engineer: Taryn DRUMMOND MD Previous echo: 09-13-22 [facility] EF 75-80%, RVE, RVSP 40 mmHg, mMR, modTR, ASC AO 4.1 cm 2D Dimensions RVDd 4.5 cm LA Diam 4.3 cm IVSd 1.1 (0.7-1.1cm) LVDd 5.3 cm PWd 1.1 (0.7-1.1cm) IVSs 1.3 (0.8-1.2cm) LVDs 3.0 (2.5-4.0cm) PWs 1.3 (0.8-1.2cm) LVOT Diameter 2.04 (1.8-2.4cm) LVEF(%) 75.5 (>50%) Ao Asc Diam. 3.60 cm IVC 13.81 mm FS (%) 44.6 % SV 103.8 ml M-Mode Dimensions Aortic Root 2.72 (2.2-3.7cm) Aortic Valve AoV Peak Julius. 237.4 cm/s AoV VTI 53.6 cm AO Peak GR. 22.5 mmHg AO Mean GR. 12 mmHg LVOT VTI 45.70 cm LVOT Peak Julius. 189.2 cm/s CHUN (VMAX) 2.79 cm2 CHUN (VTI) 2.79 cm2 Mitral Valve MV E Velocity 151.0 cm/s MV DECEL TIME 207 ms MV A Velocity 195.8 cm/s MV PHT 71 ms E/A Ratio 0.8 MVA (PHT) 3.10 cm2 Tricuspid Valve TR P. Velocity 331 cm/s RAP ESTIMATE 10 mmHg TR Peak Gr. 44 mmHg RVSP 54 mmHg LEFT VENTRICLE Normal LV size and wall thickness. Overall systolic function is normal. LVEF is 70-75%. RIGHT VENTRICLE RV is moderately dialated with normal function. Elevated right heart pressures with an RVSP of 54 mmHg. ATRIA Left atrium is mildly dilated. AORTIC VALVE Trileaflet AV appears mildly sclerotic without stenosis. Mild insufficiency. MITRAL VALVE Moderate MV annular calcification (ashley PML) without stenosis. Trace regurgitation. TRICUSPID VALVE TV appears structurally normal with mild regurgitation. PULMONIC VALVE Normal PV without stenosis, physiologic insufficiency. GREAT VESSELS The aortic root is normal in size. Ascending aorta is dilated, measuring at 3.6 cm. IVC is normal in size and collapses greater than 50% with inspiration. PERICARDIUM Normal pericardium. No effusion. Other Information Study Quality: Adequate Conclusion Normal LV size and wall thickness. Overall systolic function is normal. LVEF is 70-75%. RV is moderately dialated with normal function. Elevated right heart pressures with an RVSP of 54 mmHg. Left atrium is mildly dilated. Trileaflet AV appears mildly sclerotic without stenosis. Mild insufficiency. Moderate MV annular calcification (ashley PML) without stenosis. Trace regurgitation. TV appears structurally normal with mild regurgitation. The aortic root is normal in size. Ascending aorta is dilated, measuring at 3.6 cm. Normal pericardium. No effusion.
== END 2024-11-17 23:59 | disposition home or self-care (01) ==
LOC: RAD 12:38
PROVIDERS: ATTEND Internal Medicine Cardiovascular Disease
DX: I08.8 Other rheumatic multiple valve diseases (principal); I35.0 Nonrheumatic aortic (valve) stenosis; I42.1 Obstructive hypertrophic cardiomyopathy
CPT/HCPCS: 93306

== ENCOUNTER 2024-12-17 15:34 | Outpatient (CLI) | payer MEDICARE, BC ==
[2024-12-17 16:08] LABS: MEAN PLATELET VOLUME 7.4 FL (7.4-10.4); RED CELL DISTRIBUTION WIDTH 21.9 % (11.5-14.5)
[2024-12-17 16:37] LABS: CREATININE 0.95 MG/DL (0.40-0.90); CRP-CARDIAC RISK 6.220 MG/L; TOTAL CARBON DIOXIDE 27.1 MMOL/L (24-32); eGFR 59 ML/MIN
[2024-12-17 16:41] LABS: ELLIPTOCYTES 1+; PLATELET ESTIMATE NORMAL
== END 2024-12-17 23:59 | disposition home or self-care (01) ==
LOC: RAD 15:34
PROVIDERS: ATTEND Internal Medicine
DX: N95.1 Menopausal and female climacteric states (principal); E34.9 Endocrine disorder, unspecified; E72.11 Homocystinuria; E78.5 Hyperlipidemia, unspecified; Z00.00 Encounter for general adult medical examination without abnormal findings; E55.9 Vitamin D deficiency, unspecified; E07.9 Disorder of thyroid, unspecified; R53.83 Other fatigue
CPT/HCPCS: 36415; 80053; 85008; 85025; 85651; 86140